=== PATIENT | female | born 1965 | race Caucasian/White ===

== ENCOUNTER 2022-09-26 14:04 | Emergency (ER) | payer BC, SELFPAY ==
[2022-09-26] MEDS ORDERED: Oxymetazoline HCl 0.05% (30 ML BOT) ONE (14:22)
[2022-09-26 14:45] LABS: #Eosinphils 0.1 thou/uL (0.0-0.7); #Monocytes 0.4 thou/uL (0.11-0.59); #Neutrophils 4.4 thou/uL (1.40-6.50); %Basophils 0.4 % (0.0-1.0); %Eosinophils 1.4 % (0.0-10.0); %Lymphocytes 32.5 % (21.0-51.0); %Monocytes 5.1 % (0.0-10.0); %Neutrophils 60.5 % (42.0-75.0); Hematocrit 37.6 % (36.0-47.0); Mean Corpuscular HGB CONC 34.6 g/dL (32.0-36.0); Mean Corpuscular Hemoglobin 33.8 pg (27.0-31.0); Mean Corpuscular Volume 97.7 fl (78.0-98.0); Mean Platelet Volume 8.8 fL (7.4-10.4); Platelet Count 291 10x3/uL (130-400); RBC Distribution Width 12.1 % (11.5-14.5); Red Blood Cell (RBC) Count 3.85 mill/uL (4.20-5.40); White Blood Cell (WBC) Count 7.3 10x3/uL (4.8-10.8)
== END 2022-09-26 15:06 | disposition home or self-care (01) ==
LOC: ERS 14:04
DX: R04.0 Epistaxis (principal); E03.9 Hypothyroidism, unspecified
CPT/HCPCS: 36415; 85025; 99283